=== PATIENT | male | born 1955 | race Caucasian/White ===

== ENCOUNTER 2018-03-17 14:03 | Emergency (ER) | payer OTHER ==
[~2018-03-17] VITALS: Ht 185.4 cm; Wt 97.1 kg
[~2018-03-17 14:03] MED LIST: CENTRUM SILVER1 TAB PO; ECO81 PO; HUMALOG100 U/ML SC; HUMULIN R100 U/1 M1 SC; LAC PO; LANTUS100 U/ML SC; LEVAQUIN750 MG PO; LEVEMIR100 U/M1 SC; VIT B-6100 M1 PO; [UNRECOGNIZED DRUG - OTHER] PO
[2018-03-17 14:31] VITALS: Ht 185.4 cm; Wt 97.1 kg
[2018-03-17 15:28] LABS: BASOPHIL % 0.2 % (0-2); PLATELET COUNT 323 x10^3mcL (130-400); RED CELL DISTRIBUTION WIDTH 13.6 % (11.5-14.5)
[2018-03-17 15:43] LABS: CALCIUM 9.4 mg/dL (8.5-10.1); CHLORIDE SERUM 101 mmol/L (98-107); CREATININE SERUM 1.1 mg/dL (0.7-1.3); GFR1 > 60 mL/min; GLUCOSE SERUM 275 mg/dL (74-106); POTASSIUM SERUM 3.9 mmol/L (3.5-5.1); SODIUM SERUM 136 mmol/L (136-145)
[2018-03-17 17:36] VITALS: BP 107/65
== END 2018-03-17 17:36 | disposition home or self-care (01) ==
LOC: ED 14:03
PROVIDERS: Emergency Medicine
DX: T38.3X1A Poisoning by insulin and oral hypoglycemic [antidiabetic] drugs, accidental (unintentional), initial encounter (principal); E11.9 Type 2 diabetes mellitus without complications; Y92.89 Other specified places as the place of occurrence of the external cause
CPT/HCPCS: 36415; 82962